=== PATIENT | female | born 1950 | race Caucasian/White ===

== ENCOUNTER 2018-11-15 12:05 | Inpatient (IN) | payer MEDICARE, OTHER ==
[~2018-11-15] VITALS: Ht 167.6 cm; Wt 63.5 kg
[~2018-11-15 12:05] MED LIST: ATORVASTATIN CA40 MG ORAL; CALCIUM500 MG PO; FLORINEF0.1 MG PO; GABAPENTIN300 MG ORAL; KAYEXALATE SUSP15 GM PO; METFORMIN HCL1000 M1 ORAL; METOPROLOL TART25 MG PO; MYCOPHENOLATE250 MG PO; NEXIUM40 M2 ORAL; NORVASC5 MG PO; NOVOLIN 70100 UNIT/1 SUBQ; NOVOLIN 70100 UNIT/3 SQ; PRILOSEC OTC20 MG ORAL; PROGRAF1 MG PO; PROTONIX40 MG PO; TRAMADOL HCL100 MG PO; VITAMIN D5000 UNI1 PO; [UNRECOGNIZED DRUG - OTHER] PO
--- NOTE | 2018-11-15 12:20 | NUR ---
ED Nurse Note: patient brought in by son from home, pt lives with her son, ambulatory with cane by herself. c/o generalized pain around her back and knees, 10/10 pain x a week. pt fell in the carpet yesterday, pt denies hitting her head/no visible trauma noted. cannot tolerate food nausea/vomiting for 3 days. son at bedside. hx of kidney/liver tx.
[2018-11-15 12:31] VITALS: BP 147/90
[2018-11-15 12:57] LABS: APPEARANCE,URINE SLIGHTLY CLOUDY; BILIRUBIN, URINE NEGATIVE (NEGATIVE); GLUCOSE, URINE (UA) 1+ (NEGATIVE); KETONES,URINE 1+ (NEGATIVE); LEUKOCYTE ESTERASE ,URINE 3+ (NEGATIVE); NITRITE,URINE NEGATIVE (NEGATIVE); PH,URINE 5 (4.5-8.0); PROTEIN,URINE 1+ (NEGATIVE); UROBILINOGEN,URINE NORMAL MG/DL (0.0-1.0)
--- NOTE | 2018-11-15 12:57 | NUR ---
ED Nurse Note: blood/urine collected and sent down patient got CT scan done
[2018-11-15 13:04] LABS: BASOPHILS % (AUTO) 0.5 % (0.0-2.0); HEMATOCRIT 44.5 % (37.0-47.0); HEMOGLOBIN 14.1 G/DL (12.0-16.0); LYMPHOCYTES % (AUTO) 8.9 % (20.0-45.0); MEAN CORPUSCULAR VOLUME 89 FL (80-99); MONOCYTES % (AUTO) 7.9 % (1.0-10.0); NEUTROPHILS % (AUTO) 81.6 % (45.0-75.0); PLATELET COUNT 287 K/UL (150-450); RED BLOOD COUNT 4.99 M/UL (4.20-5.40); RED CELL DISTRIBUTION WIDTH 12.9 % (11.6-14.8); WHITE BLOOD COUNT 8.7 K/UL (4.8-10.8)
[2018-11-15 13:06] LABS: COLOR,URINE YELLOW
[2018-11-15 13:18] LABS: ANION GAP 10 mmol/L (5-15); BLOOD UREA NITROGEN 17 mg/dL (7-18); CALCIUM 9.1 MG/DL (8.5-10.1); CARBON DIOXIDE 28 MMOL/L (21-32); CHLORIDE 95 MMOL/L (98-107); CREATININE 1.3 MG/DL (0.55-1.30); POTASSIUM 4.6 MMOL/L (3.5-5.1); SODIUM 133 MMOL/L (136-145)
[2018-11-15] MEDS ORDERED: Norco 5mg/325mg tab ORAL ONE ×2 (13:30→15:30)
[2018-11-15 13:31] LABS: ALANINE AMINOTRANSFERASE 18 U/L (12-78); ALBUMIN 3.6 G/DL (3.4-5.0); ALBUMIN/GLOBULIN RATIO 0.8 (1.0-2.7); ALKALINE PHOSPHATASE 142 U/L (46-116); ASPARTATE AMINO TRANSFERASE 10 U/L (15-37); BILIRUBIN,TOTAL 0.7 MG/DL (0.2-1.0); CKMB 1.5 NG/ML (0.0-3.6); CREATINE KINASE 63 U/L (26-308)
--- NOTE | 2018-11-15 13:40 | Diagnostic Imaging Report ---
Indications: Headache and syncope Technique: Spiral acquisitions obtained through the brain. Angled axial and coronal 5 x 5 mm slices were reconstructed. Total dose length product 1376.09 mGycm. CTDI vol(s) 70.38 mGy. Dose reduction achieved using automated exposure control Comparison: 02/04/2016 Findings: No acute intrarenal hemorrhage or edema. No mass effect nor midline shift. There is minimal age-related enlargement of the ventricles and extra-axial CSF spaces. There is minimal periventricular deep white matter low-attenuation. There are dense bilateral basal ganglia calcifications. Normal eason-white differentiation. Impression: Mild chronic and age-related changes. Negative for acute intracranial bleed or mass effect The CT scanner at [facility] is accredited by the [employer] and the scans are performed using protocols designed to limit radiation exposure to as low as reasonably achievable to attain images of sufficient resolution adequate for diagnostic evaluation.
--- NOTE | 2018-11-15 15:29 | Emergency Room Report ---
History of Present Illness General Chief Complaint: Pain Source: Patient, Family Member Present Illness HPI This patient has chronic all-over body pain. The patient states that the symptoms of been much more severe over the past 3 days. The patient has a history of liver and kidney transplant. She is followed by the transplant team at [facility]. She has had nausea and vomiting after every oral intake for the past 3 days. She denies fever or chills. She denies chest pain or shortness of breath. She does get cream PE abdominal pain at times. She primarily states that she has body aches all over her body. Allergies: Coded Allergies: No Known Allergies (Verified , 03/15/08) Patient History Past Medical History: see triage record, DM, HTN, CVA/TIA, other - Liver and renal transplant Social History: Denies: smoking, alcohol use, drug use Now: No Reviewed Nursing Documentation: PMH: Agreed; PSxH: Agreed Nursing Documentation-PMH Hx Cardiac Problems: No - Tranplant (Kidney, liver, pancrease) Hx Hypertension: Yes Hx Pacemaker: No Hx Asthma: No Hx COPD: No Hx Diabetes: Yes Hx Cancer: No Hx Gastrointestinal Problems: Yes Hx Neurological Problems: Yes Hx Cerebrovascular Accident: No Hx Transient Ischemic Attacks: Yes Hx Seizures: No Hx Vertigo: Yes Hx Dizziness: Yes Hx Headaches: Yes Review of Systems All Other Systems: negative except mentioned in HPI Physical Exam Vital Signs Date Time Temp Pulse Resp B/P (MAP) Pulse Ox O2 Delivery O2 Flow Rate FiO2 11/15/18 12:12 98.4 112 16 147/90 100 Room Air Sp02 EP Interpretation: reviewed, normal General Appearance: no apparent distress, alert, GCS 15, non-toxic Head: normocephalic, atraumatic Eyes: bilateral eye normal inspection, bilateral eye PERRL ENT: hearing grossly normal, normal pharynx, no angioedema, normal voice Neck: full range of motion, supple/symm/no masses Respiratory: chest non-tender, lungs clear, normal breath sounds, no rhonchi, no respiratory distress, no retraction, no accessory muscle use, speaking full sentences Cardiovascular #1: regular rate, rhythm, no edema Gastrointestinal: normal bowel sounds, non tender, soft, non-distended, no guarding, no rebound Rectal: deferred Musculoskeletal: back normal, gait/station normal, normal range of motion, non- tender Neurologic: alert, oriented x3, responsive, motor strength/tone normal, sensory intact, speech normal Psychiatric: judgement/insight normal, memory normal, mood/affect normal, no suicidal/homicidal ideation Skin: normal color, no rash, warm/dry, well hydrated Medical Decision Making Diagnostic Impression: Primary Impression: Hyperglycemia Additional Impressions: Recurrent vomiting Pyelonephritis Body aches ER Course This patient has hyperglycemia, pyelonephritis and recurrent vomiting. She also has a history of liver and kidney transplant. I feel that this patient could decompensate rapidly. The patient states that she had not been taking her diabetes medications secondary to the vomiting. I feel this patient needs to be admitted for IV fluids, IV antibiotics and further monitoring. She is admitted to the medical surgical floor. Laboratory Tests Test 11/15/18 12:17 11/15/18 12:52 Urine Color Yellow Urine Appearance Slightly cloudy Urine pH 5 (4.5-8.0) Urine Specific [place] 1.010 (1.005-1.035) Urine Protein 1+ (NEGATIVE) H Urine Glucose (UA) 1+ (NEGATIVE) H Urine Ketones 1+ (NEGATIVE) H Urine Blood 1+ (NEGATIVE) H Urine Nitrite Negative (NEGATIVE) Urine Bilirubin Negative (NEGATIVE) Urine Urobilinogen Normal MG/DL (0.0-1.0) Urine Leukocyte Esterase 3+ (NEGATIVE) H Urine RBC 0-2 /HPF (0 - 2) Urine WBC 20-30 /HPF (0 - 2) H Urine Squamous Epithelial Cells Few /LPF (NONE/OCC) Urine Bacteria Moderate /HPF (NONE) H White Blood Count 8.7 K/UL (4.8-10.8) Red Blood Count 4.99 M/UL (4.20-5.40) Hemoglobin 14.1 G/DL (12.0-16.0) Hematocrit 44.5 % (37.0-47.0) Mean Corpuscular Volume 89 FL (80-99) Mean Corpuscular Hemoglobin 28.2 PG (27.0-31.0) Mean Corpuscular Hemoglobin Concent 31.6 G/DL (32.0-36.0) L Red Cell Distribution Width 12.9 % (11.6-14.8) Platelet Count 287 K/UL (150-450) Mean Platelet Volume 8.3 FL (6.5-10.1) Neutrophils (%) (Auto) 81.6 % (45.0-75.0) H Lymphocytes (%) (Auto) 8.9 % (20.0-45.0) L Monocytes (%) (Auto) 7.9 % (1.0-10.0) Eosinophils (%) (Auto) 1.0 % (0.0-3.0) Basophils (%) (Auto) 0.5 % (0.0-2.0) Sodium Level 133 MMOL/L (136-145) L Potassium Level 4.6 MMOL/L (3.5-5.1) Chloride Level 95 MMOL/L (98-107) L Carbon Dioxide Level 28 MMOL/L (21-32) Anion Gap 10 mmol/L (5-15) Blood Urea Nitrogen 17 mg/dL (7-18) Creatinine 1.3 MG/DL (0.55-1.30) Estimate Glomerular Filtration Rate 40.7 mL/min (>60) Glucose Level 314 MG/DL (74-106) H Lactic Acid Level 1.50 mmol/L (0.4-2.0) Calcium Level 9.1 MG/DL (8.5-10.1) Total Bilirubin 0.7 MG/DL (0.2-1.0) Aspartate Amino Transferase (AST) 10 U/L (15-37) L Alanine Aminotransferase (ALT) 18 U/L (12-78) Alkaline Phosphatase 142 U/L (46-116) H Total Creatine Kinase 63 U/L (26-308) Creatine Kinase MB 1.5 NG/ML (0.0-3.6) Creatine Kinase MB Relative Index 2.3 Troponin I 0.000 ng/mL (0.000-0.056) Total Protein 8.0 G/DL (6.4-8.2) Albumin 3.6 G/DL (3.4-5.0) Globulin 4.4 g/dL Albumin/Globulin Ratio 0.8 (1.0-2.7) L Microbiology Date/Time Source Procedure Growth Status 11/15/18 12:59 Nasal Nares Influenza Types A,B Antigen (QUE) - Final Complete EKG Diagnostic Results Rate: tachycardiac Rhythm: other - S.tachycaria ST Segments: no acute changes Rhythm Strip Diag. Results EP Interpretation: yes Rate: 100's Rhythm: no PVC's, no ectopy, other - S.tachycardia CT/MRI/US Diagnostic Results CT/MRI/US Diagnostic Results : Imaging Test Ordered: CT head Impression No acute findings. Specifically no intracranial bleed, mass effect or edema. See official report. Last Vital Signs Date Time Temp Pulse Resp B/P (MAP) Pulse Ox O2 Delivery O2 Flow Rate FiO2 11/15/18 14:04 98.4 11/15/18 12:31 110 16 147/90 100 Room Air Status: improved Disposition: ADMITTED INPATIENT Condition: Stable Referrals: NON PHYSICIAN (PCP) Janna Prince DO Nov 15, 2018 15:29
[2018-11-15] MEDS ORDERED: cefTRIAXone 1 GM in NS 55 ML IVPB ONE (15:30)
[2018-11-15 16:30] VITALS: BP 151/89
--- NOTE | 2018-11-15 18:45 | NUR ---
HAND-OFF: Report given to Gabbi BURTON.
--- NOTE | 2018-11-15 19:08 | NUR ---
ED Nurse Note: patient is being transferred to [facility] with [facility] RN report given to Gabbi BURTON. patient transferred with all of her belongings.
--- NOTE | 2018-11-15 19:35 | NUR ---
NURSE NOTES: Received patient from ER via [facility] report given by MICHEAL Pichardo. Patient alert and oriented x4. Sinhala speaking. No signs of distress noted. Complaining of pain. Will give pain medication as soon as I get admission orders from Dr. Dueñas. IV line intact right AC 20 gauge. Belongings reviewed and accounted for. [place] patient to room. Provided call light. Bed in lowest position and locked. Will continue to monitor.
[2018-11-15] MEDS: Norco 5mg/325mg tab ORAL PRN (20:48)
[2018-11-15] MEDS: Heparin 5000 units/ml inj SUBQ SCH (21:26)
[2018-11-15] MEDS: Atorvastatin 20mg tab ORAL SCH (23:53)
[2018-11-15] MEDS: Metoprolol 25mg tab ORAL SCH (23:54)
[2018-11-16] VITALS: BP 125/67
[2018-11-16] MEDS: Heparin 5000 units/ml inj SUBQ SCH ×3 (06:08→20:35)
--- NOTE | 2018-11-16 06:30 | NUR ---
NURSE NOTES: Patient will bring medication and insulin for clarification.
--- NOTE | 2018-11-16 07:30 | NUR ---
NURSE NOTES: Pt received awake able to make needs known. Japanese speaker. call light in reach will follow current plan of care
--- NOTE | 2018-11-16 08:12 | NUR ---
HAND-OFF: Report given to MICHEAL Narayan.
[2018-11-16] MEDS ORDERED: cefTRIAXone 1 GM in D5W 55 ML IVPB SCH (09:00)
[2018-11-16] MEDS: Norco 5mg/325mg tab ORAL PRN (10:17)
[2018-11-16] MEDS: Mycophenolate 250mg cap ORAL SCH ×2 (10:17→17:28)
[2018-11-16] MEDS: Metoprolol 25mg tab ORAL SCH ×2 (10:18→20:28)
[2018-11-16] MEDS: Tums 500mg ORAL SCH ×2 (10:18→17:29)
[2018-11-16] MEDS: metFORMIN 500mg tab ORAL SCH ×2 (10:18→17:29)
--- NOTE | 2018-11-16 13:00 | NUR ---
NURSE NOTES: Dr Rader attempted to be to report elevated blood sugar. Pt states she does not take regular insulin merely 70/30 blood sugar 351. " I take my sugar in the morning and sometimes in the afternoon' Pt teaching provided in regards to assessing blood sugar on a regular basis to determine baseline. " I have not taken my pills in a long time" Current plan of care will be followed. has not arrived with flexpen averages or orders upon this witting. Will reattempt to call Dr. Rader
--- NOTE | 2018-11-16 15:15 | History and Physical Report ---
DATE OF ADMISSION: 11/15/2018 HISTORY OF PRESENT ILLNESS: This is a 67-year-old female, who came to the emergency room for having abdominal pain, acute hyperkalemia, abdominal pain and renal insufficiency, neck pain, pyelonephritis and hyperglycemia. PAST MEDICAL HISTORY: GERD, urinary incontinency, and diabetes. MEDICATIONS: She is taking the Lipitor, calcium, vitamin D, omeprazole, insulin sliding scale, metformin, metoprolol, mycophenolate, tacrolimus, and tramadol. REVIEW OF SYSTEMS: This is an elderly female, who currently still has multiple complaints, head pain, neck pain as well as abdominal pain. She has no fever and no chills. PHYSICAL EXAMINATION: GENERAL: This is an elderly female, currently sitting in the bed. Discussed with the Malian nurse as well. Blood pressure is 125/67, pulse 100, respirations 18, and temperature is 101.1 to 99.7. SKIN: Good skin turgor. HEENT: NAD. CHEST: Bilaterally clear. CARDIOVASCULAR: Irregular rhythm. No gallop. No murmur. ABDOMEN: Soft. EXTREMITIES: CCE. NEUROLOGICAL: The patient has no focal deficit. GENITOURINARY: Deferred. LABORATORY DATA: White count 8.7, hemoglobin 14, hematocrit 44, and platelets 287,000. Chemistry panel, sodium 133, potassium 4.6, BUN 17, and creatinine 1.3. Glucose 314. Troponin 0.0. Lactic acid is 1.50. Her urine showing 3+ leukocyte esterase, wbc's 20 to 30, 1+ glucose, and moderate bacteria. The patient also had head CT, which is mild chronic age-related changes and negative acute intracranial mass. ASSESSMENT: 1. Acute pyelonephritis. 2. Fever, rule out sepsis. 3. Diabetes, uncontrolled. 4. Hyperglycemia. 5. Dehydration. PLAN: We will currently add antibiotics ceftriaxone, continue metformin and sliding scale. Consider ID consult and heparin for DVT and Ward for pain. Yuniel Dueñas M.D. DR: ANUSHA JOB#: [id number] CC:
--- NOTE | 2018-11-16 15:38 | Infectious Diseases Prog Note ---
Assessment/Plan Problems: (1) Pyelonephritis Assessment & Plan: with fever and flanks pain, will start cefepime empiric treatment pending urine and blood culture , continue hydration (2) Abdominal pain Assessment & Plan: with nausea and vomiting , due to the above, continue pain management as per primary and supportive care (3) Diabetes mellitus Assessment & Plan: recommend tight glycemic control to keep blood glucose between 100-140 (4) Sepsis Assessment & Plan: due to the above , will start cefepime to cover for pyelonephritis , pending blood culture Subjective Allergies: Coded Allergies: No Known Allergies (Verified , 03/15/08) Objective Vital Signs Last 24 Hour Vital Signs Date Time Temp Pulse Resp B/P (MAP) Pulse Ox O2 Delivery O2 Flow Rate FiO2 11/16/18 10:18 66 124/56 11/16/18 09:00 Room Air 11/16/18 00:00 99.7 100 18 125/67 (86) 94 11/15/18 23:54 113 146/92 11/15/18 22:03 101.1 11/15/18 21:38 Room Air 11/15/18 21:00 Room Air 11/15/18 19:07 98.4 108 24 151/89 96 Room Air 11/15/18 16:46 98.4 11/15/18 16:30 98.4 108 24 151/89 96 Room Air Height (Feet): 5 Height (Inches): 6.00 Weight (Pounds): 140 Microbiology Date/Time Source Procedure Growth Status 11/15/18 12:59 Nasal Nares Influenza Types A,B Antigen (QUE) - Final Complete 11/15/18 12:17 Urine,Clean Catch Urine Culture - Preliminary Gram Negative Bacillus 1 Resulted Current Medications Medications (Trade) Dose Ordered Sig/Cheryl Route PRN Reason Start Time Stop Time Status Last Admin Dose Admin Acetaminophen (Tylenol) 650 mg Q4H PRN ORAL Mild Pain/Temp > 100.5 11/15/18 20:15 12/15/18 20:14 11/16/18 15:13 Acetaminophen/ Hydrocodone Bitart ([place] 5/325) 1 tab Q4H PRN ORAL Moderate Pain (Pain Scale 4-6) 11/15/18 20:15 11/22/18 20:14 11/16/18 10:17 Atorvastatin Calcium (Lipitor) 40 mg BEDTIME ORAL 11/15/18 23:45 12/15/18 23:44 11/15/18 23:53 Calcium Carbonate (Tums) 500 mg BID ORAL 11/16/18 09:00 12/16/18 08:59 11/16/18 10:18 Cefepime HCl 1 gm/ Dextrose 55 ml @ 110 mls/hr EVERY 12 HOURS IVPB 11/16/18 15:45 11/23/18 15:44 UNV Dextrose (Dextrose 50%) 25 ml Q30M PRN IV Hypoglycemia 11/15/18 23:45 12/15/18 23:44 Dextrose (Dextrose 50%) 50 ml Q30M PRN IV Hypoglycemia 11/15/18 23:45 12/15/18 23:44 Heparin Sodium (Porcine) (Heparin 5000 units/ml) 5,000 units EVERY 8 HOURS SUBQ 11/15/18 22:00 12/15/18 21:59 11/16/18 15:11 Insulin Aspart (NovoLOG Mix 70/ 30) 1 units PRE BFAST AND DINNER SUBQ 11/16/18 06:30 12/16/18 06:29 UNV Metformin HCl (Glucophage) 1,000 mg BIDPC ORAL 11/16/18 09:00 12/16/18 08:59 11/16/18 10:18 Metoprolol Tartrate (Lopressor) 25 mg Q12HR ORAL 11/16/18 00:00 12/16/18 00:00 11/16/18 10:18 Mycophenolate Mofetil (Cellcept) 250 mg TWICE A DAY ORAL 11/16/18 09:00 12/16/18 08:59 11/16/18 10:17 Pantoprazole (Protonix) 40 mg DAILY ORAL 11/16/18 09:00 12/16/18 08:59 11/16/18 10:18 Sodium Chloride 1,000 ml @ 75 mls/hr [id number] IV 11/15/18 20:15 12/15/18 20:14 11/16/18 09:35 Tacrolimus (Prograf) 1 mg EVERY 12 HOURS ORAL 11/16/18 09:00 12/16/18 08:59 11/16/18 10:17 Masood Ortiz M.D. Nov 16, 2018 15:38
--- NOTE | 2018-11-16 16:25 | NUR ---
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 98.5 HR 112 RR 16 B/P 147/60 ALK PHOS 142 NA 133 URINE + PROTEIN,KETONES,BLOOD,WBC,BACTERIA,LEUKOCYTE ESTERASE IS: IV BOLUS NS X 1 LITER ROCEPHIN IV NORCO PO ADMITTED TO MED/SURG MED/SURG STATUS DCP RETURN HOME
[2018-11-16] MEDS: Cefepime HCl 1 GM in D5W 55 ML IVPB SCH (18:10)
[2018-11-16] MEDS: Insulin NovoLOG Flexpen S/S (Mod) SUBQ SCH (18:58)
--- NOTE | 2018-11-16 19:04 | NUR ---
NURSE NOTES: Follow call needs to be made with Dr Dueñas in regards to 70-30. pt brought fitzpen and pt states she takes 20 units in the morning and 20 units in the afternoon. Regualr insulin given at 10 units blood sugar 344. educated on the effects of infection related to blood sugar levels
--- NOTE | 2018-11-16 19:57 | NUR ---
NURSE NOTES: paged again in regards to 70/30 regular insulin provide . results 344. 10 units given. Pharmacy call ed in regards to pt statements of only receiving 20 units in am and 20 n the afternoon. Clarification remains pending. Pt eating well no signs of hypoglycemia related to use of regular flex pen. current plan of care will be followed
[2018-11-16 20:00] VITALS: BP 154/88
--- NOTE | 2018-11-16 20:09 | NUR ---
NURSE NOTES: Oncoming nurse will follow with 70-30 and sodium level at 133
--- NOTE | 2018-11-16 20:09 | NUR ---
HAND-OFF: Report given to Allison BURTON.
--- NOTE | 2018-11-16 20:10 | NUR ---
NURSE NOTES: Received pt from MICHEAL Hathaway. Pt awake, alert, and currently receiving her renal US. Bed in lowest position. Call light within reach. IV site intact and running NS .45 at 75/hr. Will continue to monitor.
--- NOTE | 2018-11-16 20:15 | Consultation ---
DATE OF CONSULTATION: 11/16/2018 INFECTIOUS DISEASE CONSULTATION CONSULTING PHYSICIAN: Masood Ortiz M.D. REQUESTING PHYSICIAN: Yuniel Dueñas M.D. REASON FOR CONSULTATION: Acute pyelonephritis in transplant patient, recommendation for antimicrobial treatment. HISTORY OF PRESENT ILLNESS: The patient is a 67-year-old female with past medical history of liver and renal transplant, diabetes, hypertension, and CVA, presented to [facility] emergency room for progressive abdominal pain all over including flank pain. The patient has been having also nausea and vomited on some occasions. The patient has been followed recently by the transplant team at [facility] since she had her transplant. The patient's nausea and vomiting happened after she eats or drink anything for the last three days. She had also fever, but no chills. No chest pain or shortness of breath. Denied any recent travel or sick contact. The patient had urinalysis in the emergency room, which showed evidence of infection, so she was started on ceftriaxone and Infectious Disease consultation was requested for antimicrobial treatment and further management of her pyelonephritis in transplant patient. REVIEW OF SYSTEMS: A 14-point of systems reviewed were all negative apart from the one I mentioned above in my History and Physical. PAST MEDICAL HISTORY: Significant for liver and renal transplant, CVA, hypertension, and diabetes. PAST SURGICAL HISTORY: She had renal and kidney transplant. SOCIAL HISTORY: The patient lives at home with family. No recent drugs, tobacco, or alcohol. 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 ALLERGIES: No known drug allergy. MEDICATIONS: The patient on ceftriaxone currently 1 g IV q.24 h. She is also on CellCept and Prograf for her transplant. PHYSICAL EXAMINATION: VITAL SIGNS: Temperature 101.1, pulse 113, blood pressure 146/92, and saturation 94% on room air. GENERAL: Middle-aged female, lying in bed, awake, alert, and oriented x3, not in acute distress. HEENT: Normocephalic and atraumatic. Pupils are reactive to light equally. Moist oral mucosa. No exudate or thrush. NECK: Supple. No lymphadenopathy. CARDIOVASCULAR: Regular rate and rhythm. No murmur or gallop. LUNGS: Clear bilaterally. No wheezing or rhonchi. Normal breathing efforts. ABDOMEN: Soft. Tender on the sides mainly in the flank area. No rebound. No ascites. EXTREMITIES: No edema or cyanosis. The patient had bilateral CVA tenderness worse on the left. LABORATORY AND DIAGNOSTIC DATA: Labs showed white count of 8.7, hemoglobin of 14.1, and platelet count of 287,000. BUN of 17, creatinine of 1.3. AST of 10, ALT of 18, and alkaline phosphatase of 142. Lactic acid of 1.5. Urinalysis showed 20 to 30 wbc, moderate amount of urine bacteria, and +3 leukocyte esterase, cloudy color urine. Microbiology: 1. Urine culture on the 11/15/2018 already growing Gram-negative bacillus, more than 100,000 colony. 2. Influenza A and B antigen both negative. Imaging, head CT scan showed chronic and age-related changes, negative for acute intracranial bleed or mass effect. ASSESSMENT AND RECOMMENDATION: 1. Acute pyelonephritis in transplant patient. We will upgrade her antibiotics to cefepime pending urine culture and blood culture. We will order renal ultrasound to evaluate her transplant kidney and rule out obstruction. Continue aggressive hydration and renally dosed medication. 2. Possible sepsis due to the above. Continue cefepime empiric coverage for now pending blood culture results. 3. Abdominal pain, nausea, vomiting, and generalized body aches, suspect due to the above. Continue hydration and pain management as per primary team with nausea medication. 4. Status post renal and liver transplant. Continue CellCept and Prograf. Recommend Renal and GI consults. Monitor transplant medication levels closely. 5. Diabetes. Recommend tight glycemic control to keep blood glucose between 100 to 140. Thank you for the consult. Infectious Disease will continue to follow. Please feel free to call with any question. Masood Ortiz M.D. DR: IAN JOB#: [id number] CC:
[2018-11-16] MEDS: Atorvastatin 20mg tab ORAL SCH (20:22)
--- NOTE | 2018-11-16 21:09 | NUR ---
NURSE NOTES: Called and left a message with Dr. Dueñas regarding pts low sodium of 133 as of 11/15 and that no labs hAve been drawn since then. He had no new orders. Will continue to monitor.
[2018-11-17] VITALS: BP 122/75
[2018-11-17] MEDS: Norco 5mg/325mg tab ORAL PRN ×2 (00:11→21:07)
--- NOTE | 2018-11-17 01:13 | NUR ---
NURSE NOTES: Called and left a message with Dr. Dueñas regarding pts request for stronger pain meds. Awaiting call back.
[2018-11-17 04:00] VITALS: BP 152/80
[2018-11-17] MEDS: Insulin NovoLOG Flexpen S/S (Mod) SUBQ SCH ×4 (06:24→21:15)
[2018-11-17] MEDS: Heparin 5000 units/ml inj SUBQ SCH ×3 (06:24→21:22)
[2018-11-17] MEDS: traMADol 50mg tab ORAL PRN ×2 (06:28→14:31)
--- NOTE | 2018-11-17 07:53 | NUR ---
HAND-OFF: Report given to MICHEAL Gallegos. Pt stable.
[2018-11-17 08:00] VITALS: BP 143/89
[2018-11-17] MEDS: Mycophenolate 250mg cap ORAL SCH ×2 (08:11→17:06)
[2018-11-17] MEDS: metFORMIN 500mg tab ORAL SCH ×2 (08:11→17:07)
[2018-11-17] MEDS: Tums 500mg ORAL SCH ×2 (08:12→17:06)
[2018-11-17] MEDS: Metoprolol 25mg tab ORAL SCH ×2 (08:12→20:53)
--- NOTE | 2018-11-17 09:00 | NUR ---
NURSE NOTES: received patient A/A/Ox4, tongan speaking and ambulates to the bathroom with minimal assist. No acute resp distress noted. call light is within reach. bed is in the lowest position for safety. siderails are up x3. IVF infusing well on Left wrist 22g. will cont to monitor.
--- NOTE | 2018-11-17 10:49 | Diagnostic Imaging Report ---
Indication: Flank pain Technique: Grayscale and duplex images of the kidneys, retroperitoneum, and bladder were obtained. Doppler interrogation of the transplant kidney Comparison: none Findings: There is a right lower quadrant transplant kidney. This measures 12.9 cm in length. Resistive indices measure between 0.66 and 0.92. There is minimal fullness to the allograft collecting system but no [place] hydronephrosis. 11/29/2012 this is improved since the prior study No focal abnormality. Neither [place] kidney could be identified. Normal inferior vena cava. Bladder is normal. Resistive indices are somewhat elevated as compared to prior exam Impression: Right lower quadrant renal transplant kidney demonstrated. Negative for evidence of hydronephrosis Elevated resistive indices, as described. Differential considerations include acute or chronic rejection, acute tubular necrosis, drug toxicity, less likely renal vein thrombosis Nonvisualized [place] kidneys, presumably atrophic.
[2018-11-17 11:59] VITALS: BP 143/62
--- NOTE | 2018-11-17 15:43 | NUR ---
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 98.2 HR 69 RR 18 B/P 143/82 RA 98% IS: CEFEPIME IV PROTONIX IV HEPARIN SUBC IVF NS@ 75ML/HR MED/SURG STATUS
[2018-11-17 16:09] VITALS: BP 146/90
--- NOTE | 2018-11-17 17:00 | Infectious Diseases Prog Note ---
Assessment/Plan Problems: (1) Pyelonephritis Assessment & Plan: with fever and flanks pain, due to Enterobacter aerogenes , continue iv cefepime treatment pending blood culture , continue hydration (2) Abdominal pain Assessment & Plan: with nausea and vomiting , due to the above, continue pain management as per primary and supportive care (3) Diabetes mellitus Assessment & Plan: recommend tight glycemic control to keep blood glucose between 100-140 (4) Sepsis Assessment & Plan: due to the above , continue cefepime to cover for pyelonephritis , pending blood culture Subjective Constitutional: Reports: no symptoms HEENT: Reports: no symptoms Respiratory: Reports: no symptoms Breasts: Reports: no symptoms Cardiovascular: Reports: no symptoms Gastrointestinal/Abdominal: Reports: no symptoms Genitourinary: Reports: no symptoms Neurologic: Reports: no symptoms Psychiatric: Reports: no symptoms Skin: Reports: no symptoms Endocrine: Reports: no symptoms Hematologic: Reports: no symptoms Musculoskeletal: Reports: pain Allergies: Coded Allergies: No Known Allergies (Verified , 03/15/08) Subjective she feels better over all, with no fever or chills, no nausea or vomiting, no urinary symptoms, has midline back pain Objective Vital Signs Last 24 Hour Vital Signs Date Time Temp Pulse Resp B/P (MAP) Pulse Ox O2 Delivery O2 Flow Rate FiO2 11/17/18 16:09 97.9 81 19 146/90 (108) 100 11/17/18 15:01 98.2 11/17/18 11:59 98.2 69 18 143/62 (89) 98 11/17/18 09:00 Room Air 11/17/18 08:12 85 143/89 11/17/18 08:00 98.4 85 20 143/89 (107) 99 11/17/18 04:00 98.4 72 19 152/80 (104) 96 11/17/18 00:00 100.2 77 19 122/75 (91) 100 11/16/18 21:00 Room Air 11/16/18 20:28 74 139/78 11/16/18 20:00 98.3 100 19 154/88 (110) 93 Height (Feet): 5 Height (Inches): 6.00 Weight (Pounds): 140 General Appearance: WD/WN, no acute distress HEENT: normocephalic, atraumatic, anicteric, mucous membranes moist, PERRL, EOMI, pharynx normal, supple, no JVD Respiratory/Chest: chest wall non-tender, lungs clear, normal breath sounds, no respiratory distress, no accessory muscle use Cardiovascular: normal peripheral pulses, normal rate, regular rhythm, no gallop/murmur, no JVD Abdomen: normal bowel sounds, soft, non tender, no organomegaly, non distended , no mass, no scars Extremities: no cyanosis, no clubbing Skin: no rash, no lesions, no ulcers Neurologic/Psychiatric: alert, oriented x 3, responsive Lymphatic: no neck adenopathy, no groin adenopathy Musculoskeletal: normal muscle bulk, no effusion Microbiology Date/Time Source Procedure Growth Status 11/15/18 12:53 Blood Blood Culture - Preliminary NO GROWTH AFTER 24 HOURS Resulted 11/15/18 12:52 Blood Blood Culture - Preliminary NO GROWTH AFTER 24 HOURS Resulted 11/15/18 12:59 Nasal Nares Influenza Types A,B Antigen (QUE) - Final Complete 11/15/18 12:17 Urine,Clean Catch Urine Culture - Final Enterobacter Aerogenes Complete Current Medications Medications (Trade) Dose Ordered Sig/Cheryl Route PRN Reason Start Time Stop Time Status Last Admin Dose Admin Acetaminophen (Tylenol) 650 mg Q4H PRN ORAL Mild Pain/Temp > 100.5 11/15/18 20:15 12/15/18 20:14 11/16/18 15:13 Acetaminophen/ Hydrocodone Bitart ([place] 5/325) 1 tab Q4H PRN ORAL Moderate Pain (Pain Scale 4-6) 11/15/18 20:15 11/22/18 20:14 11/17/18 00:11 Atorvastatin Calcium (Lipitor) 40 mg BEDTIME ORAL 11/15/18 23:45 12/15/18 23:44 11/16/18 20:22 Calcium Carbonate (Tums) 500 mg BID ORAL 11/16/18 09:00 12/16/18 08:59 11/17/18 08:12 Cefepime HCl 1 gm/ Dextrose 55 ml @ 110 mls/hr Q24H IVPB 11/16/18 18:00 11/23/18 17:59 11/16/18 18:10 Dextrose (Dextrose 50%) 25 ml Q30M PRN IV Hypoglycemia 11/15/18 23:45 12/15/18 23:44 Dextrose (Dextrose 50%) 50 ml Q30M PRN IV Hypoglycemia 11/15/18 23:45 12/15/18 23:44 Heparin Sodium (Porcine) (Heparin 5000 units/ml) 5,000 units EVERY 8 HOURS SUBQ 11/15/18 22:00 12/15/18 21:59 11/17/18 14:35 Insulin Aspart (NovoLOG) BEFORE MEALS AND HS SUBQ 11/16/18 21:00 12/16/18 20:59 11/17/18 11:51 Metformin HCl (Glucophage) 1,000 mg BIDPC ORAL 11/16/18 09:00 12/16/18 08:59 11/17/18 08:11 Metoprolol Tartrate (Lopressor) 25 mg Q12HR ORAL 11/16/18 00:00 12/16/18 00:00 11/17/18 08:12 Mycophenolate Mofetil (Cellcept) 250 mg TWICE A DAY ORAL 11/16/18 09:00 12/16/18 08:59 11/17/18 08:11 Pantoprazole (Protonix) 40 mg DAILY ORAL 11/16/18 09:00 12/16/18 08:59 11/17/18 08:11 Sodium Chloride 1,000 ml @ 75 mls/hr [id number] IV 11/15/18 20:15 12/15/18 20:14 11/17/18 11:52 Tacrolimus (Prograf) 1 mg EVERY 12 HOURS ORAL 11/16/18 09:00 12/16/18 08:59 11/17/18 08:11 Tramadol HCl (Ultram) 50 mg Q6H PRN ORAL for severe pain 11/17/18 05:30 11/24/18 05:29 11/17/18 14:31 Masood Ortiz M.D. Nov 17, 2018 17:00
[2018-11-17] MEDS: Cefepime HCl 1 GM in D5W 55 ML IVPB SCH (18:29)
--- NOTE | 2018-11-17 19:06 | NUR ---
HAND-OFF: Report given to Aimee.
--- NOTE | 2018-11-17 19:40 | NUR ---
NURSE NOTES: Received patient aox4, watching TV. Pt denies pain, no acute signs of distress. Cane at the bedside. IV site L wrist running IV fluids (1/2 NS) at 75 ml/hr, IV site asymptomatic, dressing dry and intact. Bed on lowest position, call light and belongings within reach, 2 side rails up.
[2018-11-17 20:00] VITALS: BP 142/85
[2018-11-17] MEDS: Atorvastatin 20mg tab ORAL SCH (20:53)
--- NOTE | 2018-11-17 22:00 | Progress Note ---
DATE: 11/17/2018 SUBJECTIVE: This is an elderly female, currently doing better. Fever is subsided. OBJECTIVE: VITAL SIGNS: Stable. CHEST: Bilaterally clear. CARDIOVASCULAR: Regular rhythm. ABDOMEN: Soft. EXTREMITIES: CCE. ASSESSMENT: 1. Fever rule out sepsis. 2. Pyelonephritis. 3. Diabetes. PLAN: Continue sliding scale. Continue Accu-Chek. ID is on consult. Yuniel Dueñas M.D. DR: OZZY JOB#: [id number] CC:
[2018-11-18] VITALS (7 sets, daily range): BP systolic 128–156; BP diastolic 70–88
[2018-11-18] MEDS: Norco 5mg/325mg tab ORAL PRN ×2 (04:23→16:35)
[2018-11-18] MEDS: Insulin NovoLOG Flexpen S/S (Mod) SUBQ SCH ×4 (06:03→21:04)
[2018-11-18] MEDS: Heparin 5000 units/ml inj SUBQ SCH ×3 (06:04→21:44)
--- NOTE | 2018-11-18 07:00 | NUR ---
HAND-OFF: Report given to MICHEAL Clifford.
[2018-11-18 07:25] LABS: ANION GAP 6 mmol/L (5-15); BLOOD UREA NITROGEN 11 mg/dL (7-18); CALCIUM 9.6 MG/DL (8.5-10.1); CARBON DIOXIDE 29 MMOL/L (21-32); CHLORIDE 101 MMOL/L (98-107); POTASSIUM 5.1 MMOL/L (3.5-5.1); SODIUM 136 MMOL/L (136-145)
[2018-11-18 07:26] LABS: BASOPHILS % (AUTO) 1.1 % (0.0-2.0); EOSINOPHILS % (AUTO) 4.8 % (0.0-3.0); HEMATOCRIT 39.2 % (37.0-47.0); HEMOGLOBIN 12.9 G/DL (12.0-16.0); LYMPHOCYTES % (AUTO) 29.2 % (20.0-45.0); MEAN CORPUSCULAR VOLUME 89 FL (80-99); MONOCYTES % (AUTO) 6.5 % (1.0-10.0); NEUTROPHILS % (AUTO) 58.4 % (45.0-75.0); PLATELET COUNT 248 K/UL (150-450); RED CELL DISTRIBUTION WIDTH 12.8 % (11.6-14.8); WHITE BLOOD COUNT 6.4 K/UL (4.8-10.8)
--- NOTE | 2018-11-18 07:56 | NUR ---
NURSE NOTES: Received pt from MICHEAL Marin, pt was resting, no c/o pain, no acute distress, call light w/in reach.
[2018-11-18] MEDS: Mycophenolate 250mg cap ORAL SCH ×2 (08:46→17:26)
[2018-11-18] MEDS: metFORMIN 500mg tab ORAL SCH ×2 (08:46→17:26)
[2018-11-18] MEDS: Tums 500mg ORAL SCH ×2 (08:47→17:26)
[2018-11-18] MEDS: Metoprolol 25mg tab ORAL SCH ×2 (08:47→21:00)
--- NOTE | 2018-11-18 14:48 | Infectious Diseases Prog Note ---
Assessment/Plan Problems: (1) Pyelonephritis Assessment & Plan: with fever and flanks pain, due to Enterobacter aerogenes , continue iv cefepime treatment for two weeks . blood culture is negative , continue hydration (2) Abdominal pain Assessment & Plan: with nausea and vomiting , due to the above, continue pain management as per primary and supportive care (3) Diabetes mellitus Assessment & Plan: recommend tight glycemic control to keep blood glucose between 100-140 (4) Sepsis Assessment & Plan: due to the above , continue cefepime to cover for pyelonephritis , pending blood culture Subjective Constitutional: Reports: no symptoms HEENT: Reports: no symptoms Respiratory: Reports: no symptoms Breasts: Reports: no symptoms Cardiovascular: Reports: no symptoms Gastrointestinal/Abdominal: Reports: no symptoms Genitourinary: Reports: no symptoms Neurologic: Reports: no symptoms Psychiatric: Reports: no symptoms Skin: Reports: no symptoms Endocrine: Reports: no symptoms Hematologic: Reports: no symptoms Allergies: Coded Allergies: No Known Allergies (Verified , 03/15/08) Subjective she feels better over all, with no fever or chills, no nausea or vomiting, no urinary symptoms. Objective Vital Signs Last 24 Hour Vital Signs Date Time Temp Pulse Resp B/P (MAP) Pulse Ox O2 Delivery O2 Flow Rate FiO2 11/18/18 12:00 98.5 70 18 128/70 (89) 99 11/18/18 08:47 79 149/75 11/18/18 08:11 Room Air 11/18/18 08:00 98.3 79 18 134/73 (93) 99 11/18/18 04:00 98.5 70 18 156/80 (105) 94 11/18/18 00:00 98.4 75 17 151/88 (109) 94 11/17/18 21:00 Room Air 11/17/18 20:53 80 142/85 11/17/18 20:00 98.6 80 18 142/85 (104) 95 11/17/18 16:09 97.9 81 19 146/90 (108) 100 11/17/18 15:01 98.2 Height (Feet): 5 Height (Inches): 6.00 Weight (Pounds): 140 General Appearance: WD/WN, no acute distress HEENT: normocephalic, atraumatic, anicteric, mucous membranes moist, PERRL Respiratory/Chest: chest wall non-tender, lungs clear, normal breath sounds, no respiratory distress, no accessory muscle use Cardiovascular: normal peripheral pulses, normal rate, regular rhythm, no gallop/murmur, no JVD Abdomen: normal bowel sounds, soft, non tender, no organomegaly, non distended , no mass, no scars Extremities: no cyanosis, no clubbing Skin: no rash, no lesions, no ulcers 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4 % (45.0-75.0) Lymphocytes (%) (Auto) 29.2 % (20.0-45.0) Monocytes (%) (Auto) 6.5 % (1.0-10.0) Eosinophils (%) (Auto) 4.8 % (0.0-3.0) H Basophils (%) (Auto) 1.1 % (0.0-2.0) Sodium Level 136 MMOL/L (136-145) Potassium Level 5.1 MMOL/L (3.5-5.1) Chloride Level 101 MMOL/L (98-107) Carbon Dioxide Level 29 MMOL/L (21-32) Anion Gap 6 mmol/L (5-15) Blood Urea Nitrogen 11 mg/dL (7-18) Creatinine 1.0 MG/DL (0.55-1.30) Estimat Glomerular Filtration Rate 55.1 mL/min (>60) Glucose Level 199 MG/DL (74-106) H Calcium Level 9.6 MG/DL (8.5-10.1) Current Medications Medications (Trade) Dose Ordered Sig/Cheryl Route PRN Reason Start Time Stop Time Status Last Admin Dose Admin Acetaminophen (Tylenol) 650 mg Q4H PRN ORAL Mild Pain/Temp > 100.5 11/15/18 20:15 12/15/18 20:14 11/16/18 15:13 Acetaminophen/ Hydrocodone Bitart ([place] 5/325) 1 tab Q4H PRN ORAL Moderate Pain (Pain Scale 4-6) 11/15/18 20:15 11/22/18 20:14 11/18/18 04:23 Atorvastatin Calcium (Lipitor) 40 mg BEDTIME ORAL 11/15/18 23:45 12/15/18 23:44 11/17/18 20:53 Calcium Carbonate (Tums) 500 mg BID ORAL 11/16/18 09:00 12/16/18 08:59 11/18/18 08:47 Cefepime HCl 1 gm/ Dextrose 55 ml @ 110 mls/hr Q24H IVPB 11/16/18 18:00 11/23/18 17:59 11/17/18 18:29 Dextrose (Dextrose 50%) 25 ml Q30M PRN IV Hypoglycemia 11/15/18 23:45 12/15/18 23:44 Dextrose (Dextrose 50%) 50 ml Q30M PRN IV Hypoglycemia 11/15/18 23:45 12/15/18 23:44 Heparin Sodium (Porcine) (Heparin 5000 units/ml) 5,000 units EVERY 8 HOURS SUBQ 11/15/18 22:00 12/15/18 21:59 11/18/18 14:45 Insulin Aspart (NovoLOG) BEFORE MEALS AND HS SUBQ 11/16/18 21:00 12/16/18 20:59 11/18/18 12:16 Metformin HCl (Glucophage) 1,000 mg BIDPC ORAL 11/16/18 09:00 12/16/18 08:59 11/18/18 08:46 Metoprolol Tartrate (Lopressor) 25 mg Q12HR ORAL 11/16/18 00:00 12/16/18 00:00 11/18/18 08:47 Mycophenolate Mofetil (Cellcept) 250 mg TWICE A DAY ORAL 11/16/18 09:00 12/16/18 08:59 11/18/18 08:46 Pantoprazole (Protonix) 40 mg DAILY ORAL 11/16/18 09:00 12/16/18 08:59 11/18/18 08:47 Sodium Chloride 1,000 ml @ 75 mls/hr [id number] IV 11/15/18 20:15 12/15/18 20:14 11/18/18 02:27 Tacrolimus (Prograf) 1 mg EVERY 12 HOURS ORAL 11/16/18 09:00 12/16/18 08:59 11/18/18 08:47 Tramadol HCl (Ultram) 50 mg Q6H PRN ORAL for severe pain 11/17/18 05:30 11/24/18 05:29 11/17/18 14:31 Masood Ortiz M.D. Nov 18, 2018 14:48
[2018-11-18] MEDS: Cefepime HCl 1 GM in D5W 55 ML IVPB SCH (17:26)
--- NOTE | 2018-11-18 20:07 | NUR ---
NURSE NOTES:Patient received laying in bed . A/A/AOX4 .LW g#22 H/L Patent and intact . patient denies any pain at this time . no s/s of distress . patient verbalized her needs. safety maintained. call light within reach . bed in low position at all times . will continue to monitor.
--- NOTE | 2018-11-18 20:07 | NUR ---
HAND-OFF: Report given to MICHELLE Solorio.
[2018-11-18] MEDS: Atorvastatin 20mg tab ORAL SCH (20:59)
--- NOTE | 2018-11-18 21:45 | Progress Note ---
DATE: 11/18/2018 SUBJECTIVE: This is a 67-year-old female. Currently, doing better. Abdominal pain has improved and headache has improved. OBJECTIVE: CHEST: Bilaterally clear. CARDIOVASCULAR: Regular rhythm. ABDOMEN: Soft. ASSESSMENT: 1. Sepsis. 2. Pyelonephritis. 3. . PLAN: Continue current treatment. Continue sliding scale and Accu-Chek. Yuniel Dueñas M.D. DR: DENAE JOB#: [id number] CC:
[2018-11-19 04:00] VITALS: BP 148/7
[2018-11-19] MEDS: Heparin 5000 units/ml inj SUBQ SCH ×3 (06:20→21:12)
[2018-11-19] MEDS: Insulin NovoLOG Flexpen S/S (Mod) SUBQ SCH ×4 (06:24→21:11)
[2018-11-19] MEDS: Norco 5mg/325mg tab ORAL PRN ×3 (06:56→21:08)
--- NOTE | 2018-11-19 07:05 | NUR ---
HAND-OFF: Report given to ONIEL Guzmán Patient in stable condition.
[2018-11-19 08:00] VITALS: BP 127/77
[2018-11-19] MEDS: Metoprolol 25mg tab ORAL SCH ×2 (08:22→21:15)
[2018-11-19] MEDS: metFORMIN 500mg tab ORAL SCH ×2 (08:22→17:04)
[2018-11-19] MEDS: Tums 500mg ORAL SCH ×2 (08:22→17:04)
[2018-11-19] MEDS: Mycophenolate 250mg cap ORAL SCH ×2 (08:22→17:06)
--- NOTE | 2018-11-19 10:00 | NUR ---
NURSE NOTES: PT AXOX4, CALM, RESTING IN BED. IN NO APPARENT DISTRESS AT THIS TIME. BED IN LOWEST POSITION WITH HOB ELEVATED. CALL LIGHT WITHIN REACH. WILL CONTINUE TO MONITOR.
--- NOTE | 2018-11-19 11:20 | Cardiology Report ---
APPROVED REPORT EKG Measurement Heart [id number] CO [id number] Sinus tachycardia Otherwise normal ECG
[2018-11-19 12:00] VITALS: BP 128/58
[2018-11-19 16:00] VITALS: BP 117/59
[2018-11-19] MEDS: Cefepime HCl 1 GM in D5W 55 ML IVPB SCH (17:04)
--- NOTE | 2018-11-19 17:46 | Infectious Diseases Prog Note ---
Assessment/Plan Problems: (1) Pyelonephritis Assessment & Plan: with fever and flanks pain, due to Enterobacter aerogenes , continue iv cefepime treatment for two weeks . blood culture is negative , continue hydration (2) Abdominal pain Assessment & Plan: with nausea and vomiting , due to the above, continue pain management as per primary and supportive care (3) Diabetes mellitus Assessment & Plan: recommend tight glycemic control to keep blood glucose between 100-140 (4) Sepsis Assessment & Plan: due to the above , continue cefepime to cover for pyelonephritis , pending blood culture Subjective Constitutional: Reports: no symptoms HEENT: Reports: no symptoms Respiratory: Reports: no symptoms Breasts: Reports: no symptoms Cardiovascular: Reports: no symptoms Gastrointestinal/Abdominal: Reports: no symptoms Genitourinary: Reports: no symptoms Neurologic: Reports: no symptoms Psychiatric: Reports: no symptoms Skin: Reports: no symptoms Endocrine: Reports: no symptoms Hematologic: Reports: no symptoms Musculoskeletal: Reports: no symptoms Allergies: Coded Allergies: No Known Allergies (Verified , 03/15/08) Subjective she feels better over all, with no fever or chills, no nausea or vomiting, no urinary symptoms. Objective Vital Signs Last 24 Hour Vital Signs Date Time Temp Pulse Resp B/P (MAP) Pulse Ox O2 Delivery O2 Flow Rate FiO2 11/19/18 16:00 97.7 69 18 117/59 (78) 99 11/19/18 12:00 98.0 65 18 128/58 (81) 99 11/19/18 09:00 Room Air 11/19/18 08:22 86 127/77 11/19/18 08:00 98.4 86 18 127/77 (94) 98 11/19/18 07:26 97.7 11/19/18 04:00 97.7 74 20 148/7 (54) 99 11/18/18 23:58 98.7 72 18 150/84 (106) 99 11/18/18 21:00 Room Air 11/18/18 21:00 75 146/77 11/18/18 20:00 98.5 73 18 136/77 (96) 99 Height (Feet): 5 Height (Inches): 6.00 Weight (Pounds): 140 General Appearance: WD/WN, no acute distress HEENT: normocephalic, atraumatic, anicteric, mucous membranes moist, PERRL Respiratory/Chest: chest wall non-tender, lungs clear, normal breath sounds, no respiratory distress, no accessory muscle use Cardiovascular: normal peripheral pulses, normal rate, regular rhythm, no gallop/murmur, no JVD Abdomen: normal bowel sounds, soft, non tender, no organomegaly, non distended , no mass, no scars Genitourinary: normal external genitalia Extremities: no cyanosis, no clubbing Skin: no rash, no lesions, no ulcers 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, no motor/sensory deficits, alert, oriented x 3, responsive Lymphatic: no neck adenopathy, no groin adenopathy Musculoskeletal: normal muscle bulk, no effusion Current Medications Medications (Trade) Dose Ordered Sig/Cheryl Route PRN Reason Start Time Stop Time Status Last Admin Dose Admin Acetaminophen (Tylenol) 650 mg Q4H PRN ORAL Mild Pain/Temp > 100.5 11/15/18 20:15 12/15/18 20:14 11/16/18 15:13 Acetaminophen/ Hydrocodone Bitart ([place] 5/325) 1 tab Q4H PRN ORAL Moderate Pain (Pain Scale 4-6) 11/15/18 20:15 11/22/18 20:14 11/19/18 11:38 Atorvastatin Calcium (Lipitor) 40 mg BEDTIME ORAL 11/15/18 23:45 12/15/18 23:44 11/18/18 20:59 Calcium Carbonate (Tums) 500 mg BID ORAL 11/16/18 09:00 12/16/18 08:59 11/19/18 17:04 Cefepime HCl 1 gm/ Dextrose 55 ml @ 110 mls/hr Q24H IVPB 11/16/18 18:00 11/23/18 17:59 11/19/18 17:04 Dextrose (Dextrose 50%) 25 ml Q30M PRN IV Hypoglycemia 11/15/18 23:45 12/15/18 23:44 Dextrose (Dextrose 50%) 50 ml Q30M PRN IV Hypoglycemia 11/15/18 23:45 12/15/18 23:44 Heparin Sodium (Porcine) (Heparin 5000 units/ml) 5,000 units EVERY 8 HOURS SUBQ 11/15/18 22:00 12/15/18 21:59 11/19/18 14:12 Insulin Aspart (NovoLOG) BEFORE MEALS AND HS SUBQ 11/16/18 21:00 12/16/18 20:59 11/19/18 17:13 Metformin HCl (Glucophage) 1,000 mg BIDPC ORAL 11/16/18 09:00 12/16/18 08:59 11/19/18 17:04 Metoprolol Tartrate (Lopressor) 25 mg Q12HR ORAL 11/16/18 00:00 12/16/18 00:00 11/19/18 08:22 Mycophenolate Mofetil (Cellcept) 250 mg TWICE A DAY ORAL 11/16/18 09:00 12/16/18 08:59 11/19/18 17:06 Pantoprazole (Protonix) 40 mg DAILY ORAL 11/16/18 09:00 12/16/18 08:59 11/19/18 08:22 Tacrolimus (Prograf) 1 mg EVERY 12 HOURS ORAL 11/16/18 09:00 12/16/18 08:59 11/19/18 08:21 Tramadol HCl (Ultram) 50 mg Q6H PRN ORAL for severe pain 11/17/18 05:30 11/24/18 05:29 11/17/18 14:31 Masood Ortiz M.D. Nov 19, 2018 17:46
--- NOTE | 2018-11-19 19:01 | NUR ---
HAND-OFF: Report given to Kvng BAHENA LVN.
--- NOTE | 2018-11-19 19:01 | NUR ---
NURSE NOTES:Patient received Jed R.N. pATIENT A/A/AOX4 . No sob / no n/v noted LW g#22 H/L patent and intact patient Ambulate to bathroom with cane and voided freely without difficulties and assisted back to bed . . patient instructed to uses the call light when needed . bed in low position at all times .will continue to monitor patient .
[2018-11-19 20:00] VITALS: BP 148/77
[2018-11-19 20:01] VITALS: BP 148/77
[2018-11-19] MEDS: Atorvastatin 20mg tab ORAL SCH (21:07)
--- NOTE | 2018-11-19 22:00 | Progress Note ---
DATE: 11/19/2018 SUBJECTIVE: This is an elderly female, who is comfortable, sitting in the bed. Cultures are so far negative. OBJECTIVE: CHEST: Bilaterally clear. CARDIOVASCULAR: Regular rhythm. ABDOMEN: Soft. ASSESSMENT AND PLAN: 1. Fever. Rule out of sepsis. 2. Atypical chest pain. 3. Bronchitis. Continue antibiotic. 4. Pyelonephritis. Continue cultures. Yuniel Dueñas M.D. DR: OZZY JOB#: [id number] CC:
[2018-11-20] VITALS: BP 146/93
[2018-11-20 00:01] VITALS: BP 145/60
[2018-11-20 04:00] VITALS: BP 145/90
[2018-11-20] MEDS: Norco 5mg/325mg tab ORAL PRN ×2 (05:10→09:12)
[2018-11-20] MEDS: Heparin 5000 units/ml inj SUBQ SCH (05:13)
[2018-11-20] MEDS: Insulin NovoLOG Flexpen S/S (Mod) SUBQ SCH ×2 (06:01→11:35)
--- NOTE | 2018-11-20 07:32 | NUR ---
NURSE NOTES: Received report from MICHELLE Solorio. Patient kazakh speaking and a/o x4. Denies any pain at this time. [place] was given around 0520 am. No respiratory discomfort noted. Call light within reach and will continue to monitor.
--- NOTE | 2018-11-20 07:32 | NUR ---
HAND-OFF: Report given to DINO MITTAL R.N.Patient in stable conditions.
[2018-11-20 08:00] VITALS: BP 148/85
[2018-11-20 08:42] VITALS: BP 148/85
[2018-11-20] MEDS: Metoprolol 25mg tab ORAL SCH (08:42)
[2018-11-20] MEDS: Tums 500mg ORAL SCH (08:42)
[2018-11-20] MEDS: metFORMIN 500mg tab ORAL SCH (08:42)
[2018-11-20] MEDS: Mycophenolate 250mg cap ORAL SCH (08:42)
[2018-11-20] MEDS ORDERED: LEVAQUIN500 MG ORAL (11:44)
--- NOTE | 2018-11-20 12:00 | NUR ---
NURSE NOTES: Belongings checked and given to the patient. Discharge instruction was given. Removed IV. Discharged accompanied by patient's son in stable condition.
--- NOTE | 2018-11-20 16:52 | Infectious Diseases Prog Note ---
Assessment/Plan Problems: (1) Pyelonephritis Assessment & Plan: with fever and flanks pain, due to Enterobacter aerogenes , continue iv cefepime treatment for two weeks . blood culture is negative , continue hydration (2) Abdominal pain Assessment & Plan: with nausea and vomiting , due to the above, continue pain management as per primary and supportive care (3) Diabetes mellitus Assessment & Plan: recommend tight glycemic control to keep blood glucose between 100-140 (4) Sepsis Assessment & Plan: due to the above , continue cefepime to cover for pyelonephritis , monitor blood culture Assessment/Plan time of stamp dosen't correlate with time patient was seen Subjective Constitutional: Reports: no symptoms HEENT: Reports: no symptoms Respiratory: Reports: no symptoms Breasts: Reports: no symptoms Cardiovascular: Reports: no symptoms Gastrointestinal/Abdominal: Reports: no symptoms Genitourinary: Reports: no symptoms Neurologic: Reports: no symptoms Psychiatric: Reports: no symptoms Skin: Reports: no symptoms Endocrine: Reports: no symptoms Hematologic: Reports: no symptoms Musculoskeletal: Reports: no symptoms Allergies: Coded Allergies: No Known Allergies (Verified , 03/15/08) Subjective she feels better over all, with no fever or chills, no nausea or vomiting, no urinary symptoms. Objective Vital Signs Last 24 Hour Vital Signs Date Time Temp Pulse Resp B/P (MAP) Pulse Ox O2 Delivery O2 Flow Rate FiO2 11/20/18 09:00 Room Air 11/20/18 08:42 73 148/85 11/20/18 08:00 98.0 73 20 148/85 (106) 96 11/20/18 05:40 97.1 11/20/18 04:00 97.1 68 145/90 (108) 99 11/20/18 00:01 98.2 67 20 145/60 (88) 99 11/19/18 21:15 78 148/77 11/19/18 21:00 Room Air 11/19/18 20:01 98.2 78 18 148/77 (100) 99 Height (Feet): 5 Height (Inches): 6.00 Weight (Pounds): 140 General Appearance: WD/WN, no acute distress HEENT: normocephalic, atraumatic, anicteric, mucous membranes moist, PERRL Respiratory/Chest: chest wall non-tender, lungs clear, normal breath sounds, no respiratory distress, no accessory muscle use Cardiovascular: normal peripheral pulses, normal rate, regular rhythm, no gallop/murmur, no JVD Abdomen: normal bowel sounds, soft, non tender, no organomegaly, non distended , no mass, no scars Genitourinary: normal external genitalia Extremities: no cyanosis, no clubbing Skin: no rash, no lesions, no ulcers 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 Nov 20, 2018 16:52
--- NOTE | 2018-11-20 22:00 | Progress Note ---
DATE: 11/20/2018 SUBJECTIVE: This is an elderly female, who came in with chest pain, fever, chills, and pyelonephritis. The patient is currently doing better. OBJECTIVE: VITAL SIGNS: Blood pressure is 148/85 and pulse 73. No fever. CHEST: Bilaterally clear. CARDIOVASCULAR: Regular rhythm. ABDOMEN: Soft. EXTREMITIES: CCE. LABORATORY AND DIAGNOSTIC DATA: His chemistry is unremarkable. Cultures are so far negative. Influenza negative. The patient has urine culture showing Enterobacter and sensitive to Levaquin. ASSESSMENT AND PLAN: Enterobacter bacteria in the urine. We will continue Levaquin for 5 days. Discharge plan home. Follow up as outpatient with primary care. Yuniel Dueñas M.D. DR: DENAE JOB#: [id number] CC:
--- NOTE | 2018-11-21 09:36 | NUR ---
*-* INSURANCE*-* CLINICALS AND REVIEWS FAXED TO: [facility] NCM:BERNIE HWITAKER P:[phone] F:[phone]
--- NOTE | 2018-11-21 11:13 | Discharge Summary ---
Discharge Summary Discharge Summary _ DATE OF ADMISSION: 11/15/2018 DATE OF DISCHARGE: 11/20/2018 DISCHARGED BY: Dr. Dueñas REASON FOR ADMISSION: 67 years old female with past medical history of kidney and liver transplant, hypertension, diabetes mellitus, history of transient ischemic attack, presented with chronic generalized body pain. Patient reported that symptoms became more severe over the past 3 days. Patient follows -up by the transplant team at [facility]. Patient reported nausea and vomiting after every oral intake for the past 3 days. Patient denied fever and chills. Patient denied chest pain and shortness of breath. Patient reported intermittent crampy abdominal pain . Upon evaluation vital signs revealed tachycardia with heart rate 112. Blood pressure was slightly elevated 147/90. Urinalysis was grossly positive for UTI. No leukocytosis, stable hemoglobin hematocrit. Sodium 133. BUN 17 creatinine 1.3. Lactic acid 1.5. Glucose 314. Stable LFT and lipase. Troponin negative. EKG revealed sinus tachycardia, no acute ischemic changes. Albumin 3.6. CT of the head revealed no acute intracranial pathology, but showed mild chronic and age-related changes. Patient was admitted for further management of acute pyelonephritis in transplant patient. CONSULTANTS: ID specialist Dr. Ortiz [facility] COURSE: Patient was admitted to medical surgical floor and started on the IV fluids and empiric antibiotics. ID specialist closely followed. Urine culture revealed Enterobacter. Antibiotic regimen optimized as per ID specialist recommendations. Patient need to continue antibiotics at home to complete the course as per ID specialist recommendations. Blood cultures were negative. Influenza screen test was negative. Patient remained afebrile , no leukocytosis. Blood sugar was managed with oral metformin and sliding scale of insulin as needed. Blood pressure was managed with beta-trish. Statin was continued. DVT prophylaxis provided. Antirejection medication resumed, including CellCept and Prograf. GI prophylaxis provided. Patient slowly started on diet was advanced as tolerated. Antiemetic provided as needed. Nausea and vomiting were likely due to acute pyelonephritis and subsided as the infection was under control. Pain management was addressed as needed. Supportive care provided. Bowel regimen instituted. Patient clinically stabilized and was ready for discharge home. FINAL DIAGNOSES: Sepsis due to pyelonephritis Enterobacter pyelonephritis in transplant patient Hyperglycemia associated with diabetes mellitus Kidney liver transplant patient Hypertension DISCHARGE MEDICATIONS: See Medication Reconciliation list. DISCHARGE INSTRUCTIONS: Patient was discharged home Follow up with primary care provider in one week. Follow-up with [facility] transplant team . I have been assigned to dictate discharge summary for this account. I was not involved in the patient's management. Lesley Pond NP Nov 21, 2018 11:13
== END 2018-11-20 12:09 | disposition home or self-care (01) | DRG 720 ==
LOC: EMR 12:36 → 3E 17:00 → EDBEDREQ 18:23
DX: A41.9 Sepsis, unspecified organism (principal); Z94.4 Liver transplant status; E11.65 Type 2 diabetes mellitus with hyperglycemia; Z94.0 Kidney transplant status; N10 Acute pyelonephritis; B96.89 Other specified bacterial agents as the cause of diseases classified elsewhere; I10 Essential (primary) hypertension; Z86.73 Personal history of transient ischemic attack (TIA), and cerebral infarction without residual deficits
CPT/HCPCS: 36415; 70450; 76770; 80048; 80053; 81003; 82550; 82553; 82962; 83605; 84484; 85025; 86710; 87040; 87086; 87181; 93005; 96361; 96365; 99285; J1815